=== PATIENT | female | born 1970 | race Caucasian/White ===

== ENCOUNTER 2022-12-11 08:26 | Day surgery (SDC) | payer OTHER, SELFPAY ==
[2022-12-07 09:35] VITALS: BMI 22.4
--- NOTE | 2022-12-11 | PATH_ITS ---
[facility] Accession Number: [id number] No. of containers..01 Tissue . 01 Material submitted: . ovary - LEFT OVARY AND BILATERAL FALLOPIAN TUBES . 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 Two fimbriated fallopian tubes without significant pathologic abnormality. . CANCER CASE SUMMARY - Procedure: Left oophorectomy and bilateral salpingectomy. - Specimen integrity: Left ovary fragmented; right and left fallopian tubes serosa intact. - Tumor site: Left ovary. - Tumor size: Specimen submitted morcellated, aggregating to 8.3 x 5.5 x 2.5 cm. - Histologic type: Malignant struma ovarii, with follicular variant papillary carcinoma. - Histologic grade: Not applicable. - Ovarian surface involvement: Not identified. - Fallopian tube surface involvement: Not identified. - Other tissue/organ involvement: Not applicable (none submitted). - Regional lymph node status: Not applicable (none submitted). - pTNM classification (AJCC 8th Edition): pT1a, pN not assignated, pM not applicable. - Additional findings: None identified. [facility] 12/28/2022 1756 Local . 01 Comment: The results of this case are verbally provided by Dr. Mario to Nurse Dwyer on 12/28/2022 at 3:20 p.m. She reports that the specimen was removed laparoscopically and was morcellated at the time of surgery. . The ovarian tumor is composed primarily of thyroid tissue with a scant amount of mature teratoma (composed primarily of skin elements). Within the thyroid tissue are multiple foci of a follicular neoplasm exhibiting nuclear atypia including enlargement, irregularity, open chromatin ,and nuclear grooves. 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 This case is also reviewed by Dr. Francine Cooper, who concurs with the given interpretation. . 01 Electronically signed: . Filomena Mario MD, Pathologist NPI- [id number] . 01 Gross description: . The specimen is received in formalin labeled with the patient's name, , and left ovary, bilateral fallopian tubes, and consists of a fragmented presumed ovary with cyst wall, grumous material, and holguin hair, all weighing 32 g and aggregating to 8.3 x 5.4 x 2.5 cm. The holguin cyst wall averages 0.1 cm thick with no excrescences grossly identified. However, due to the distortion and fragmented nature of the cyst, the presence of excrescences is difficult to determine. The solid areas are variegated, holguin to brown, and soft with no areas of calcification grossly identified. No normal ovarian parenchyma is seen. Also within the container are two unoriented fimbriated fallopian tubes measuring 4.5 x 0.5 cm and 3.5 x 0.6 cm. The longer fallopian tube has violaceous, smooth serosa with a cystic structure measuring 0.4 cm in greatest dimension filled with clear serous fluid. Sectioning reveals an unremarkable stellate lumen. The shorter fallopian tube has holguin, smooth serosa with no cystic structures grossly identified. Sectioning reveals an unremarkable stellate lumen. Gusset Stitcher sections are submitted as follows: A1-A4: Gusset Stitcher ovarian cyst to include solid and cystic areas. A5: Longer fallopian tube to include one-half of bisected fimbriae and cross sections. A6: Short fallopian tube to include one-half of bisected fimbriae and cross sections. ([id number]) Additional sections of solid areas are submitted in cassettes A7-A10. ([id number]) /R 12/24/2022 1228 Local . 01 Pathologist provided ICD-10: C56.9 . 01 CPT . 293201 Specimen Comment: A courtesy copy of this report has been sent to [phone] Performed at: 01 [facility] [address] [place] [address] [address] [facility], [place], [place] [id number] MD Sina Chi MD Phone: [phone]
[2022-12-11 08:42] VITALS: BP 100/65; PULSE 66; RESP 17; TEMP 36.4; O2SAT 99; BMI 22.2
[2022-12-11] MEDS: LACTATED RINGERS 1,000 ML 42 ML IV ×2 (08:52→10:21)
--- NOTE | 2022-12-11 09:43 | PM.PREOP ---
Pre-operative Note COVID-19 COVID-19 status: Not tested Criteria for continued procedure: Non-surgical alternatives not available or appropriate per current SOC Interval Note History & Physical reviewed/Exam performed by Physician: Yes Changes to H&P: No
--- NOTE | 2022-12-11 10:12 | SUR.OPER ---
Lithotomy on padded OR bed, head on pillow, arms secured on padded arm boards at <90 degrees abduction. Legs secured in padded yellow fins stirrups.
[2022-12-11] MEDS: BUPIVACAINE 0.5% W/ EPI (PF) 30 ML VIAL INJ (10:20)
--- NOTE | 2022-12-11 11:14 | P.OP_ITS ---
Operative Date/Time/Diagnoses Date of procedure: 12/11/22 Time of procedure: 10:05 Pre-op diagnosis: Dermoid cyst, left ovary Post-op diagnosis: same Procedure & Clinicians Procedure: Procedures Operation Date: 12/11/22 09:45 Actual Procedure Side Surgeon p Laparoscopic Left Salpingo-ophorectomy, Right Salpingectomy, Babatunde Rizo MD Indications: Jessica is a 52-year-old , LMP 11/07/2022 who presents for evaluation after a pelvic ultrasound performed in January 2022 for abnormal bleeding following IUD insertion showed findings consistent with a dermoid in the left ovary.? The ultrasound, performed 01/14/2022 at [facility] in [place] showed the uterus to be 8.8 x 5.8 x 5.4 cm with a normal myometrium, centrally positioned IUD with strings at the external os, and normal endometrium with the combined thickness of 8.9 mm.? The right ovary is normal in appearance and has a problem will dominant follicle.? The ovary itself is 3.6 cm x 2.1 cm x 1.9 cm.? The left ovary however shows a left ovarian mass with a 3.1 cm paraovarian cyst.? The left ovary measures 5.6 x 5.0 x 4.6 cm with a 4.6 x 4.5 x 4.2 cm heterogenous, hyperechoic mass within the left ovary representing a probable dermoid cyst. She experienced menarche at age 12 and had heavy periods requiring initiation of oral contraceptives in her teens.? After her 4th delivery she had an IUD placed at about age 40 which for a variety of reasons remained in-situ until its removal and replacement in 2021.? Shortly after the removal, she had episodes of heavy bleeding which triggered performance of the pelvic ultrasound referenced above.? The IUD (Mirena) remains in-situ and she continues to have regular predictable periods which are very light in character.? She denies intermenstrual spotting or postcoital bleeding.? She had an abnormal Pap in her 20s but was treated and subsequent Paps have all been normal.? She is not having any symptoms of pelvic discomfort or any other gynecologic issues. The nature of dermoid cysts and paraovarian cysts was reviewed with the patient.? Options for further evaluation/treatment discussed at length.? After consideration of all options including expectant management or operative intervention, patient opts to proceed with laparoscopic left salpingo oophorectomy and right salpingectomy.? The right ovary will remain in-situ unless grossly abnormal.? She presents today for her scheduled surgery. Surgeon: Babatunde Rizo Anesthesia Type: General Operative Notes Findings: The uterus is normal in size and shape. The anterior cul-de-sac is free of any abnormalities or adhesions. Both fallopian tubes appear to be normal. The right ovary is mobile, and normal in size and shape. The left ovary is enlarged has an exophytic dermoid cyst which was removed along with the ovary without spillage. The remainder of the abdomen pelvis were visualized and found to be unremarkable laparoscopic visualization. Closure Type: primary Specimen(s): right tube and left tube & ovary Estimated blood loss (mL): 10 Blood products transfused: none Procedure in detail: With the patient under satisfactory general anesthesia in the modified dorsal lithotomy position, perineum, vagina, and abdomen were prepped and draped in the usual manner for laparoscopy. A straight catheter was used to empty the bladder. Pre-surgical safety time-out was then taken in accordance with [facility] Main OR protocols. The inferior edge of the umbilicus was infiltrated with 0.5% Marcaine with epinephrine. A 2-1/2 cm vertical umbilical incision was made and carried down to the deep fascia. The deep fascia was incised tr ansversely intact at both angles with 0 Vicryl suture. Peritoneum was entered sharply and a Causey cannula was placed into the abdominal cavity. Correct placement of the cannula was confirmed by laparoscopic visualization and the abdomen was insufflated with carbon dioxide. A 2nd and 3rd 5 mm port was placed in the mid quadrants on the left and the right side using a similar technique. Using a 3 puncture technique the pelvis and abdomen were thoroughly visualized with the findings as noted above. The distal tube on the right side was elevated with a grasping forceps and using a power Seal device, fimbria ovarica was coagulated and divided. The dissection was taken across the mesosalpinx to the cornua where the tube was coagulated and divided. Tube was then removed through 1 of the 5 mm ports. Attention was then turned to the left adnexa. The left ovary was mobilized upward out of the posterior cul-de-sac and the infundibulopelvic ligament was doubly coagulated and divided with a power Seal device. That dissection also was then taken across the mesosalpinx to the cornua where the utero-ovarian ligament and cornual portion of fallopian tube coagulated and divided. The left adnexa was then retrieved using Endo-Catch bag and morcellated to deliver the specimen through the umbilical incision. 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 The pelvis was thoroughly inspected and found to be without any sort of bleeding points or other abnormalities. The pneumoperitoneum was then vented and the umbilical incision was closed with 0 Vicryl interrupted is on the fascia and all incisions were then closed with 4-0 Monocryl using inverted interrupted stitches on the skin incisions. Skin glue was applied followed by appropriate dressings. The patient was then awakened from anesthesia and transported to the PACU for a period of observation and recovery having tolerated the procedure well. Complications: none Post-operative Condition: stable Disposition: PACU Plan for aftercare: Routine care with follow-up planned for 2 weeks postop.
[2022-12-11 11:16] VITALS: BP 102/37; PULSE 84; RESP 10; TEMP 36.2; O2SAT 99
[2022-12-11 11:21] VITALS: BP 120/45; PULSE 78; RESP 10; O2SAT 97
[2022-12-11 11:26] VITALS: BP 114/45; PULSE 82; RESP 10; O2SAT 96
[2022-12-11 11:31] VITALS: BP 108/40; PULSE 80; RESP 10; O2SAT 96
[2022-12-11 11:36] VITALS: BP 107/53; PULSE 77; RESP 10; TEMP 36.1; O2SAT 96
[2022-12-11] MEDS: HYDROCODONE/ACET 5/325 TABLET 1 TAB PO (11:46)
== END 2022-12-11 12:00 | disposition home or self-care (01) ==
PROVIDERS: PCP Physician Assistant; Referring Provider Obstetrics & Gynecology; Visit Provider Obstetrics & Gynecology
PROC: (CPT 58661; principal; 2022-12-11 09:45)
DX: C56.2 Malignant neoplasm of left ovary (principal)
CPT/HCPCS: 58661; J3010

== ENCOUNTER → 2023-03-23 09:18 | Outpatient (CLI) | payer OTHER, SELFPAY ==
[2023-03-23 19:23] LABS: Cholesterol 259 mg/dL (140-199); HDL Cholesterol 96 mg/dL (40-60); LDL Cholesterol Calculated 151 mg/dL (<100); Triglycerides 61 mg/dL (35-150)
[2023-03-23 19:41] LABS: Add Manual Diff / Slide Review NO; Basophils Absolute Auto 0 /uL (0-100); Basophils Percent Auto 0.9 % (0-2); Eosinophils Absolute Auto 100 /uL (0-450); Eosinophils Percent Auto 1.4 % (2-4); Hematocrit 39.3 % (36-46); Hemoglobin 13.4 g/dL (12.0-16.0); Lymphocytes Absolute Auto 1500 /uL (1100-4500); Lymphocytes Percent Auto 28.1 % (25-40); Mean Corpuscular HGB Conc 34.1 % (30-36); Mean Corpuscular Hemoglobin 32.7 PG (26-34); Mean Corpuscular Volume 95.9 fL (80-100); Monocytes Absolute Auto 300 /uL (0-900); Monocytes Percent Auto 6.1 % (3-14); Neutrophils Absolute Auto 3400 /uL (1500-7000); Neutrophils Percent Auto 63.5 % (50-75); Platelet Count 240 X10^3/uL (150-400); Red Cell Distribution Width 12.7 % (11.6-14.8); White Blood Cell Count 5.3 X10^3/uL (4.5-11.0)
== END ==
PROVIDERS: PCP Family Medicine; Visit Provider Family Medicine
DX: C56.2 Malignant neoplasm of left ovary (principal); Z13.1 Encounter for screening for diabetes mellitus; Z13.6 Encounter for screening for cardiovascular disorders
CPT/HCPCS: 80061; 85025

== ENCOUNTER → 2023-04-07 11:33 | Outpatient (CLI) | payer OTHER, SELFPAY ==
[2023-04-07 19:32] LABS: Add Manual Diff / Slide Review NO; Basophils Absolute Auto 0 /uL (0-100); Basophils Percent Auto 0.5 % (0-2); Eosinophils Absolute Auto 100 /uL (0-450); Eosinophils Percent Auto 1.3 % (2-4); Hematocrit 43.9 % (36-46); Hemoglobin 14.9 g/dL (12.0-16.0); Lymphocytes Absolute Auto 1800 /uL (1100-4500); Lymphocytes Percent Auto 32.5 % (25-40); Mean Corpuscular HGB Conc 34.1 % (30-36); Mean Corpuscular Volume 96.9 fL (80-100); Monocytes Absolute Auto 200 /uL (0-900); Monocytes Percent Auto 4.2 % (3-14); Neutrophils Absolute Auto 3500 /uL (1500-7000); Neutrophils Percent Auto 61.5 % (50-75); Platelet Count 228 X10^3/uL (150-400); Red Blood Cell Count 4.53 X10^6/uL (4.0-5.2); Red Cell Distribution Width 12.9 % (11.6-14.8); White Blood Cell Count 5.6 X10^3/uL (4.5-11.0)
[2023-04-07 19:42] LABS: Alanine Aminotransferase 21 IU/L (<35); Albumin 4.5 g/dL (3.5-5.0); Albumin Globulin Ratio 1.5 (1.0-2.8); Alkaline Phosphatase 79 U/L (38-126); Aspartate Aminotransferase 28 IU/L (14-36); BUN Creatinine Ratio 11.6 (6-22); Bilirubin Total 1.1 mg/dL (0.2-1.3); Blood Urea Nitrogen 8 mg/dL (7-17); Calcium 9.7 mg/dL (8.4-10.2); Carbon Dioxide 28 mmol/L (22-32); Chloride 104 mmol/L (98-107); Estimated Glomerular Filt Rate > 60 mL/min (>60); Glucose 94 mg/dL (70-100); HEMOLYSIS 19 (0-50); Potassium 4.2 mmol/L (3.4-5.1); Sodium 141 mmol/L (137-145); Total Protein 7.5 g/dL (6.3-8.2)
[2023-04-07 19:54] LABS: Free T4, Direct Thyroxine 1.43 ng/dL (0.78-2.19)
[2023-04-07 20:08] LABS: Thyroid Stimulating Hormone 0.072 uIU/mL (0.47-4.68)
== END ==
PROVIDERS: PCP Family Medicine; Visit Provider Internal Medicine Hematology & Oncology
DX: C56.2 Malignant neoplasm of left ovary (principal)
CPT/HCPCS: 80053; 84439; 84443; 85025

== ENCOUNTER → 2025-01-10 11:41 | Outpatient (CLI) | payer OTHER, SELFPAY ==
--- NOTE | 2025-01-10 11:42 | DI.MG.S_ITS ---
MM screening mammo BI: 01/10/2025. BI-RADS: 1 CLINICAL: 54-year old female for bilateral screening mammogram. Tyrer-Cuzick lifetime risk of 9.2%. No personal or first-degree family history of breast cancer. PRIOR EXAMS Outside priors 06/24/2023, 12/05/2021, 07/29/2020, and 06/02/2019. MAMMOGRAPHY TECHNIQUE: 2D and 3D (tomosynthesis) digital mammographic views obtained, with additional images as needed for full coverage. Current study was also evaluated with a Computer Aided Detection (CAD) system. DENSITY C. The breasts are heterogeneously dense, which may obscure small masses. MAMMOGRAPHY FINDINGS Bilateral: No suspicious mass, asymmetry, microcalcification, or other abnormality seen. IMPRESSION: * No evidence of malignancy. RECOMMENDATIONS Bilateral * Annual screening mammography. OVERALL ASSESSMENT CATEGORY BI-RADS-1: Negative. The [employer] recommends annual screening mammography beginning at age 40 for women with average risk of breast cancer. ELECTRONICALLY SIGNED: Kun De Leon M.D. on 01/11/2025 at 09:28:15 PM PT Interpreting Station ID: [id number]
== END ==
LOC: MAMMO 11:42
PROVIDERS: PCP Family Medicine; Referring Provider Family Medicine; Visit Provider Family Medicine
DX: Z12.31 Encounter for screening mammogram for malignant neoplasm of breast (principal); R92.333 Mammographic heterogeneous density, bilateral breasts
CPT/HCPCS: 77063; 77067